=== PATIENT | female | born 1995 | race Caucasian/White ===

== ENCOUNTER 2019-05-17 08:24 | Emergency (ER) | payer OTHER ==
[~2019-05-17] VITALS: Ht 149.9 cm; Wt 49.9 kg
== END 2019-05-17 13:00 | disposition home or self-care (01) ==
LOC: ER 08:24
DX: J03.80 Acute tonsillitis due to other specified organisms (principal); B97.11 Coxsackievirus as the cause of diseases classified elsewhere

== ENCOUNTER 2024-11-13 18:52 | Inpatient (IN) | payer OTHER ==
[~2024-11-13] VITALS: Ht 152.4 cm; Wt 58.1 kg
[2024-11-13 19:48] VITALS: BP 143/88
[2024-11-13] MEDS ORDERED: FOLIC ACID20 MG PO (20:24)
[2024-11-13] MEDS ORDERED: PRENATAL CAPLE1 EAC1 PO (20:24)
[2024-11-13 20:31] LABS: HEMATOCRIT 31.8 % (36.0-45.00); HEMOGLOBIN 10.9 g/dL (12.0-15.00); MEAN CORPUSCULAR HEMOGLOBIN 28.4 pg (27.00-32.0); MEAN CORPUSCULAR HGB CONC 34.2 g/dl (32.0-36.0); PLATELET COUNT 151 K/uL (150-450); RED BLOOD COUNT 3.84 M/uL (4.00-6.00); RED CELL DISTRIBUTION WIDTH 13.1 % (11.5-14.5)
[2024-11-13 20:33] LABS: URINE APPEARANCE Clear; URINE BACTERIA 1164.9 uL (0.0-1933); URINE BILIRRUBIN Negative (NEGATIVE); URINE BLOOD Negative; URINE COLOR Yellow; URINE EPITHELIAL CELLS 68.2 uL (0.0-38.8); URINE GLUCOSE Negative (NEGATIVE); URINE KETONE 15 (NEGATIVE); URINE LEUKOCYTE Negative; URINE NITRATE Negative; URINE PROTEIN 30 (NEGATIVE); URINE UROBILINOGEN 0.2 E.U./dl; URINE WBC 12.6 uL (0.0-23.2)
[2024-11-13] MEDS ORDERED: RINGERS SOLUTION,LACTATED 1,000 ML IV SCH (20:45)
[2024-11-13 20:51] LABS: URINE CAST 0.58 uL (0.0-1.40); URINE RBC 1.6 uL (0.0-20.8)
[2024-11-13 20:53] LABS: INR 0.94; PARTIAL THROMBOPLASTIN TIME 26.5 SECONDS (22.0-34.0); PROTHROMBIN TIME 10.3 SECONDS (9.0-11.5)
[2024-11-13 20:58] LABS: ALBUMIN 2.5 gm/dL (3.4-5.0); BILIRUBIN TOTAL 0.27 mg/dL (0.3-1.2); CALCIUM 8.4 mg/dL (8.5-10.1); CREATININE SERUM 0.56 mg/dL (0.55-1.02); GFR 126.26; GLOBULINA 3.3 G/DL (2.4-3.5); POTASSIUM 3.91 mEq/L (3.5-5.1); TOTAL PROTEIN 5.8 gm/dL (6.4-8.2)
[2024-11-13 23:20] VITALS: BP 114/69; O2SAT 97
[2024-11-14] VITALS (7 sets, daily range): BP systolic 116–143; BP diastolic 75–85; O2SAT 98
[2024-11-14 20:04] LABS: CREATININE URINE 27.6 MG/DL; URINE PROT QUANT 24HR 26.3 MG/DL
[2024-11-14 20:15] LABS: CREATININE SERUM 0.69 mg/dL (0.6-1.0)
[2024-11-14] MEDS ORDERED: BETAMETHASONE ACETATE,SOD PHOS 30 MG/5 ML ML IM SCH (20:45)
[2024-11-15 03:27] VITALS: BP 134/72
[2024-11-15 07:37] VITALS: BP 127/77
[2024-11-15 09:11] LABS: HEMATOCRIT 33.7 % (36.0-45.00); HEMOGLOBIN 11.3 g/dL (12.0-15.00); MEAN CELL VOLUME 84.2 fL (80.00-100.00); MEAN CORPUSCULAR HEMOGLOBIN 28.3 pg (27.00-32.0); MEAN CORPUSCULAR HGB CONC 33.6 g/dl (32.0-36.0); PLATELET COUNT 153 K/uL (150-450); RED CELL DISTRIBUTION WIDTH 12.6 % (11.5-14.5)
[2024-11-15 09:39] LABS: ALBUMIN 2.3 gm/dL (3.4-5.0); BILIRUBIN TOTAL 0.37 mg/dL (0.3-1.2); CALCIUM 8.6 mg/dL (8.5-10.1); CREATININE SERUM 0.51 mg/dL (0.55-1.02); GFR 140.65; GLOBULINA 3.3 G/DL (2.4-3.5); POTASSIUM 3.92 mEq/L (3.5-5.1); TOTAL PROTEIN 5.6 gm/dL (6.4-8.2)
[2024-11-15 11:28] VITALS: BP 144/78
[2024-11-15] MEDS ORDERED: ONDANSETRON HCL 2 MG/ML VIAL ONE (14:02)
[2024-11-15] MEDS ORDERED: ONDANSETRON HCL 2 MG/ML VIAL IV PRN (14:15)
[2024-11-15 15:10] VITALS: BP 132/76
[2024-11-15 20:18] VITALS: BP 122/76
[2024-11-15] MEDS ORDERED: BETAMETHASONE ACETATE,SOD PHOS 30 MG/5 ML ML IM SCH (21:00)
[2024-11-15 23:06] VITALS: BP 130/79
[2024-11-16 03:14] VITALS: BP 117/67
[2024-11-16 06:06] VITALS: BP 123/70; O2SAT 98
[2024-11-16 10:01] LABS: HEMATOCRIT 35.1 % (36.0-45.00); HEMOGLOBIN 11.8 g/dL (12.0-15.00); MEAN CELL VOLUME 84.3 fL (80.00-100.00); MEAN CORPUSCULAR HEMOGLOBIN 28.3 pg (27.00-32.0); MEAN CORPUSCULAR HGB CONC 33.6 g/dl (32.0-36.0); PLATELET COUNT 192 K/uL (150-450); RED BLOOD COUNT 4.16 M/uL (4.00-6.00); RED CELL DISTRIBUTION WIDTH 13.3 % (11.5-14.5)
[2024-11-16 10:46] LABS: ALBUMIN 2.8 gm/dL (3.4-5.0); BILIRUBIN TOTAL 0.44 mg/dL (0.3-1.2); CALCIUM 8.6 mg/dL (8.5-10.1); CREATININE SERUM 0.8 mg/dL (0.55-1.02); GFR 83.66; GLOBULINA 3.6 G/DL (2.4-3.5); TOTAL PROTEIN 6.4 gm/dL (6.4-8.2)
[2024-11-16 10:50] VITALS: BP 141/81
[2024-11-16 15:12] VITALS: BP 132/80; O2SAT 100
== END 2024-11-16 20:05 | disposition home or self-care (01) | DRG 833 ==
LOC: OBS/DEL 18:52 → LDR 11-14 20:34
PROVIDERS: ADMIT Specialist; ATTEND Specialist
PROC: 4A1HXCZ Monitoring of Products of Conception, Cardiac Rate, External Approach (ICD-10-PCS; principal; 2024-11-14)
PROC: BY4FZZZ Ultrasonography of Third Trimester, Single Fetus (ICD-10-PCS; 2024-11-16)
DX: O14.03 Mild to moderate pre-eclampsia, third trimester (principal); O14.93 Unspecified pre-eclampsia, third trimester; O36.8130 Decreased fetal movements, third trimester, not applicable or unspecified; O26.843 Uterine size-date discrepancy, third trimester; O99.893 Other specified diseases and conditions complicating puerperium; Z3A.31 31 weeks gestation of pregnancy

== ENCOUNTER 2024-11-24 11:35 | Inpatient (IN) | payer OTHER ==
[~2024-11-24] VITALS: Ht 152.4 cm; Wt 1.4 kg
[2024-11-24] VITALS (7 sets, daily range): BP systolic 116–174; BP diastolic 71–111
[~2024-11-24 11:35] MED LIST: FOLIC ACID20 MG PO; PRENATAL CAPLE1 EAC1 PO
[2024-11-24] MEDS ORDERED: RINGERS SOLUTION,LACTATED 1,000 ML IV SCH (11:45)
[2024-11-24] MEDS ORDERED: LABETALOL HCL 100 MG/20 ML ML ONE ×2 (12:45→13:20)
[2024-11-24 12:46] LABS: HEMATOCRIT 36.4 % (36.0-45.00); HEMOGLOBIN 12.1 g/dL (12.0-15.00); MEAN CELL VOLUME 84.2 fL (80.00-100.00); MEAN CORPUSCULAR HEMOGLOBIN 27.9 pg (27.00-32.0); MEAN CORPUSCULAR HGB CONC 33.1 g/dl (32.0-36.0); RED BLOOD COUNT 4.32 M/uL (4.00-6.00); RED CELL DISTRIBUTION WIDTH 13.8 % (11.5-14.5)
[2024-11-24] MEDS ORDERED: MAGNESIUM SULFATE IN WATER 4 GM/100 ML PIGGYBACK IV ONE ×2 (12:46→13:00)
[2024-11-24] MEDS ORDERED: MAGNESIUM SULFATE IN WATER 0.04 GM/ML IV.SOLN IV ONE ×2 (12:47→20:23)
[2024-11-24] MEDS ORDERED: ACETAMINOPHEN 500 MG GEL..CAP PO ONE ×2 (12:47→13:30)
[2024-11-24 12:52] LABS: PLATELET COUNT 73 K/uL (150-450)
[2024-11-24] MEDS ORDERED: MAGNESIUM SULFATE IN WATER 500 ML IV SCH (13:00)
[2024-11-24] MEDS ORDERED: ACETAMINOPHEN 325 MG TABLET PO ONE (13:00)
[2024-11-24] MEDS ORDERED: LABETALOL HCL 100 MG/20 ML ML IV ONE (13:00)
[2024-11-24 13:10] LABS: INR < 0.93; PARTIAL THROMBOPLASTIN TIME 27.2 SECONDS (22.0-34.0)
[2024-11-24 13:26] LABS: ALBUMIN 2.2 gm/dL (3.4-5.0); BILIRUBIN TOTAL 0.48 mg/dL (0.3-1.2); CALCIUM 8.2 mg/dL (8.5-10.1); CREATININE SERUM 0.96 mg/dL (0.55-1.02); GFR 67.79; GLOBULINA 3.4 G/DL (2.4-3.5); POTASSIUM 3.75 mEq/L (3.5-5.1); TOTAL PROTEIN 5.6 gm/dL (6.4-8.2)
[2024-11-24 13:55] LABS: MANUAL PLATELET COUNT 140
[2024-11-24] MEDS ORDERED: LABETALOL HCL 100 MG/20 ML ML IV PUSH ONE (14:00)
[2024-11-24] MEDS ORDERED: OXYTOCIN 10 UNITS/ML VIAL ONE (15:49)
[2024-11-24] MEDS ORDERED: ERYTHROMYCIN BASE OPHT 1GM EACH TUBE OP ONE (15:49)
[2024-11-24] MEDS ORDERED: hydrALAZINE HCL 20 MG VIAL ONE (15:53)
[2024-11-24] MEDS ORDERED: hydrALAZINE HCL 20 MG VIAL IV ONE ×3 (16:30→21:00)
[2024-11-24] MEDS ORDERED: CEFAZOLIN SODIUM 1,000 MG VIAL ONE (16:34)
[2024-11-24] MEDS ORDERED: KETOROLAC TROMETHAMINE 60 MG VIAL IM ONE ×2 (18:00→19:06)
[2024-11-24] MEDS ORDERED: MEPERIDINE HCL 25 MG/ML AMPUL IV ONE (18:30)
[2024-11-24] MEDS ORDERED: MORPHINE SULFATE 4 MG/ML VIAL IV SCH (20:00)
[2024-11-24] MEDS ORDERED: MEPERIDINE HCL/PF 25 MG/ML VIAL IV ONE (20:30)
[2024-11-24] MEDS ORDERED: PROMETHAZINE HCL 25 MG/ML AMPUL IV ONE (20:30)
[2024-11-25] VITALS (7 sets, daily range): BP systolic 122–160; BP diastolic 77–92; O2SAT 97–100
[2024-11-25 00:14] LABS: HEMATOCRIT 33.2 % (36.0-45.00); MEAN CELL VOLUME 83.9 fL (80.00-100.00); MEAN CORPUSCULAR HGB CONC 33.3 g/dl (32.0-36.0); RED BLOOD COUNT 3.96 M/uL (4.00-6.00); RED CELL DISTRIBUTION WIDTH 13.7 % (11.5-14.5)
[2024-11-25 00:21] LABS: HEMOGLOBIN 11.1 g/dL (12.0-15.00); PLATELET COUNT 67 K/uL (150-450)
[2024-11-25] MEDS ORDERED: IBUprofen 800 MG TABLET PO SCH (09:00)
[2024-11-25] MEDS ORDERED: SIMETHICONE 125 MG CAPSULE PO SCH (09:00)
[2024-11-25] MEDS ORDERED: DOCUSATE SODIUM 100MG CAP PO SCH (09:00)
[2024-11-25 09:15] LABS: HEMATOCRIT 34.8 % (36.0-45.00); HEMOGLOBIN 11.7 g/dL (12.0-15.00); MEAN CELL VOLUME 83.9 fL (80.00-100.00); MEAN CORPUSCULAR HEMOGLOBIN 28.3 pg (27.00-32.0); MEAN CORPUSCULAR HGB CONC 33.7 g/dl (32.0-36.0); RED BLOOD COUNT 4.14 M/uL (4.00-6.00); RED CELL DISTRIBUTION WIDTH 14.3 % (11.5-14.5)
[2024-11-25 09:16] LABS: PLATELET COUNT 73 K/uL (150-450)
[2024-11-25 09:57] LABS: ALBUMIN 1.8 gm/dL (3.4-5.0); BILIRUBIN TOTAL 0.37 mg/dL (0.3-1.2); CALCIUM 7.6 mg/dL (8.5-10.1); CREATININE SERUM 0.78 mg/dL (0.55-1.02); GFR 86.14; GLOBULINA 2.9 G/DL (2.4-3.5); POTASSIUM 4.51 mEq/L (3.5-5.1); TOTAL PROTEIN 4.7 gm/dL (6.4-8.2)
[2024-11-25 10:05] LABS: MAGNESIUM 9.2 mg/dL (1.8-2.4)
[2024-11-25] MEDS ORDERED: OxyCODONE HCL/APAP UD (PERCOCET) PO ONE (20:30)
[2024-11-25] MEDS ORDERED: NIFEDIPINE 30 MG TAB.SA.OSM PO SCH (21:00)
[2024-11-26 08:00] VITALS: BP 125/80
[2024-11-26 16:00] VITALS: BP 120/70
[2024-11-26] MEDS ORDERED: NIFEDIPINE 30 MG TAB.SA.OSM PO SCH (21:00)
[2024-11-27 00:24] VITALS: BP 130/70
[2024-11-27 08:00] VITALS: BP 130/78
== END 2024-11-27 17:59 | disposition home or self-care (01) | DRG 783 ==
LOC: LDR 11:35 → O/R 11:35 → OB/GYN 20:37 → O/R 20:47 → LDR 22:09 → OB/GYN 11-25 18:33
PROVIDERS: ADMIT Specialist; ATTEND Specialist
PROC: 0UB70ZZ Excision of Bilateral Fallopian Tubes, Open Approach (ICD-10-PCS; 2024-11-24)
PROC: 4A1HXCZ Monitoring of Products of Conception, Cardiac Rate, External Approach (ICD-10-PCS; 2024-11-24)
PROC: BY4FZZZ Ultrasonography of Third Trimester, Single Fetus (ICD-10-PCS; 2024-11-24)
PROC: BY47ZZZ Ultrasonography of Fetal Umbilical Cord (ICD-10-PCS; 2024-11-24)
PROC: 10D00Z1 Extraction of Products of Conception, Low, Open Approach (ICD-10-PCS; principal; 2024-11-24 16:45)
DX: O14.04 Mild to moderate pre-eclampsia, complicating childbirth (principal); O41.1430 Placentitis, third trimester, not applicable or unspecified; O26.843 Uterine size-date discrepancy, third trimester; O36.8130 Decreased fetal movements, third trimester, not applicable or unspecified; O60.14X0 Preterm labor third trimester with preterm delivery third trimester, not applicable or unspecified; O36.5930 Maternal care for other known or suspected poor fetal growth, third trimester, not applicable or unspecified; O43.893 Other placental disorders, third trimester; O32.1XX0 Maternal care for breech presentation, not applicable or unspecified; O14.24 HELLP syndrome, complicating childbirth; O99.892 Other specified diseases and conditions complicating childbirth; Z3A.33 33 weeks gestation of pregnancy; Z37.0 Single live birth; Z30.2 Encounter for sterilization